=== PATIENT | female | born 1995 | race Caucasian/White ===

== ENCOUNTER 2016-05-31 20:52 | Emergency (ER) | payer MEDICAID, OTHER ==
[2016-05-31 22:01] VITALS: BP 147/77
--- NOTE | 2016-05-31 22:33 | UC ---
UC General HPI - HPI Summary HPI Summary: patient had unprotected sex a few nights ago, it is not the first time. she recently had unprotected sex. her last period was two weeks ago. She is worried about STD's. when she went to the bathroom this morning there was blood, she is afraid she is . - History of Current Complaint Chief Complaint: UCGU Stated Complaint: PERSONAL Time Seen by Provider: 05/31/16 21:58 Hx Obtained From: Patient Onset/Duration: Sudden Onset, Lasting Days Timing: Constant Onset Severity: Moderate Current Severity: Moderate Associated Signs & Symptoms: Positive: Dysuria - Allergy/Home Medications Allergies/Adverse Reactions: Allergies Allergy/AdvReac Type Severity Reaction Status Date / Time Penicillins [PCN] Allergy Rash Verified 05/31/16 21:54 Sulfa Antibiotics Allergy Rash Verified 05/31/16 21:54 Sulfamethoxazole Allergy Rash Verified 05/31/16 21:54 w/Trimethoprim [From Bactrim] PMH/Surg Hx/FS Hx/Imm Hx Previously Healthy: Yes - Surgical History Surgical History: None - Family History Known Family History: Negative: Cardiac Disease, Hypertension Family History: no known cardio vascular issues in family - Social History Alcohol Use: Weekly Substance Use Type: None Smoking Status (MU): Never Smoked Tobacco Review of Systems Constitutional: Negative Skin: Negative Eyes: Negative ENT: Negative Respiratory: Negative Cardiovascular: Negative Gastrointestinal: Abdominal Pain - cramping Genitourinary: Hematuria Motor: Negative Neurovascular: Negative Musculoskeletal: Negative Neurological: Negative Psychological: Negative All Other Systems Reviewed And Are Negative: Yes Physical Exam Triage Information Reviewed: Yes Appearance: Well-Appearing, Well-Nourished, Pain Distress Vital Signs: Initial Vital Signs Temp 99.9 F 05/31/16 21:54 Pulse 95 05/31/16 21:54 Resp 16 05/31/16 21:54 BP 147/77 05/31/16 21:54 Pulse Ox 100 05/31/16 21:54 Vital Signs Reviewed: Yes Eye Exam: Normal Eyes: Positive: Conjunctiva Clear ENT Exam: Normal ENT: Positive: Normal ENT inspection, Hearing grossly normal, Pharynx normal, TMs normal Dental Exam: Normal Neck exam: Normal Neck: Positive: Supple, Nontender, No Lymphadenopathy Respiratory Exam: Normal Respiratory: Positive: Chest non-tender, Lungs clear, Normal breath sounds Cardiovascular Exam: Normal Cardiovascular: Positive: RRR, No Murmur, Pulses Normal Abdominal Exam: Normal Bowel Sounds: Positive: Present Musculoskeletal Exam: Normal Musculoskeletal: Positive: Strength Intact, ROM Intact, No Edema Neurological Exam: Normal Neurological: Positive: Alert Psychological Exam: Normal Skin Exam: Normal Course/Dx - Course Course Of Treatment: hx obtained, exam performed, meds reviewed, UA positive for hematuria, neg . pelvic exam: bloody cervical discharge consistant with menses, cervix is slightly swollen, no unusal discharge, no pain with manual exam. - Differential Dx - Multi-Symptom Provider Diagnoses: Abnormal menses. STD check Discharge - Discharge Plan Condition: Stable Disposition: HOME Patient Education Materials: Sexually Transmitted Diseases (ED), Safe Sex (ED) , Condom Use (ED) Referrals: Non Staff,Doctor [Primary Care Provider] - Additional Instructions: follow up with the [facility] for complete STD testing and Advise on methods of control. [facility] * Address: [address] [place] [address] *
== END 2016-05-31 23:09 | disposition home or self-care (01) ==
LOC: UCCORT 20:52
DX: N92.6 Irregular menstruation, unspecified (principal); R30.0 Dysuria; Z11.3 Encounter for screening for infections with a predominantly sexual mode of transmission; Z32.02 Encounter for pregnancy test, result negative; Z88.0 Allergy status to penicillin; Z88.2 Allergy status to sulfonamides
CPT/HCPCS: 81003; 84702; 87480; 87491; 87510; 87591; 87661; 99211; G0463